=== PATIENT | female | born 1960 | race Caucasian/White ===

== ENCOUNTER 2017-06-18 05:36 | Inpatient (IN) | payer BC ==
[2017-06-18] MEDS ORDERED: Celecoxib 200 MG Cap PO ONE (06:00)
[2017-06-18] MEDS ORDERED: fentaNYL 12 MCG/HR Transdermal Patch TRDERM SCH (06:00)
[2017-06-18] MEDS ORDERED: Scopolamine 1.5 MG Transdermal Patch TRDERM SCH (06:00)
[2017-06-18] MEDS ORDERED: Acetaminophen 500 MG Tab PO ONE (06:00)
[2017-06-18] MEDS ORDERED: Dextrose 5%-Lactated Ringers 1,000 ML IV SCH (06:30)
[2017-06-18] MEDS ORDERED: Meropenem 500 MG SDV ONE (06:38)
[2017-06-18] MEDS ORDERED: Propofol 200 MG/20 ML SDV ONE ×2 (07:14→07:50)
[2017-06-18] MEDS ORDERED: fentaNYL 250 MCG/5 ML SDV ONE (07:14)
[2017-06-18] MEDS ORDERED: Neostigmine Methylsulfate 1 MG/ML 5 ML Syringe ONE (07:14)
[2017-06-18] MEDS ORDERED: Rocuronium 50 MG/5 ML Vial ONE (07:14)
[2017-06-18] MEDS ORDERED: Ondansetron 4 MG/2 ML SDV ONE (07:14)
[2017-06-18] MEDS ORDERED: Glycopyrrolate 0.2 MG/ML 5 ML MDV ONE (07:14)
[2017-06-18] MEDS ORDERED: Succinylcholine 200 MG/10 ML MDV ONE (07:14)
[2017-06-18] MEDS ORDERED: Dexamethasone 4 MG/ML SDV ONE (07:14)
[2017-06-18] MEDS ORDERED: HYDROmorphone/Normal Saline 15 MG/30 ML PCA IV PRN (07:24)
[2017-06-18] MEDS ORDERED: Naloxone 0.4 MG/ML SDV IVPUSH PRN (07:24)
[2017-06-18] MEDS ORDERED: Naloxone 0.4 MG/ML SDV IV PRN (07:29)
[2017-06-18] MEDS ORDERED: cefOXitin 2 GM in Sodium Chloride 0.9% 50 ML IV ONE (07:45)
[2017-06-18] MEDS ORDERED: Lactated Ringers 1,000 ML ONE ×2 (08:03→08:30)
[2017-06-18] MEDS ORDERED: Linezolid 200 MG/100 ML Bag IRR ONE (09:12)
[2017-06-18] MEDS ORDERED: Ondansetron 4 MG/2 ML SDV IVPUSH PRN (11:02)
[2017-06-18] MEDS ORDERED: ALPRAZolam 0.5 MG Tab PO PRN (11:03)
[2017-06-18] MEDS ORDERED: Glucose Gel 15 GM in 37.5 GM Tube PO PRN (11:15)
[2017-06-18] MEDS ORDERED: Glucagon,Human Recombinant 1 MG Vial IM PRN (11:15)
[2017-06-18] MEDS ORDERED: Insulin Aspart 100 Units/ML 3 ML Pen SUBCUT PRN ×2 (11:15→12:00)
[2017-06-18] MEDS ORDERED: 50% Dextrose in Water 50 ML Syringe IVPUSH PRN (11:15)
[2017-06-18] MEDS: FENTANYL PATCH CHECK TOP SCH ×2 (11:24→20:27)
[2017-06-18] MEDS: SCOPOLAMINE PATCH CHECK TOP SCH (11:29)
[2017-06-18] MEDS: Pantoprazole 40 MG Vial IV SCH (12:02)
[2017-06-18] MEDS: Dextrose 5%-Lactated Ringers 1,000 ML IV SCH ×2 (13:44→20:35)
[2017-06-18] MEDS: Levothyroxine 112 MCG Tab PO SCH (13:45)
[2017-06-18] MEDS: Venlafaxine 75 MG Cap.ER PO SCH (13:45)
[2017-06-18] MEDS: ceFAZolin 2 GM in Sodium Chloride 0.9% 50 ML IV SCH ×2 (13:52→21:00)
[2017-06-18] MEDS: Celecoxib 200 MG Cap PO SCH (17:28)
[2017-06-18] MEDS: Tolterodine 2 MG Tab PO SCH (20:45)
[2017-06-18] MEDS: metFORMIN 500 MG Tab.ER PO SCH (20:45)
[2017-06-18] MEDS: Doxepin 25 MG Cap PO SCH (20:46)
[2017-06-19] MEDS: Dextrose 5%-Lactated Ringers 1,000 ML IV SCH (02:59)
[2017-06-19] MEDS: ceFAZolin 2 GM in Sodium Chloride 0.9% 50 ML IV SCH (06:13)
[2017-06-19] MEDS: Celecoxib 200 MG Cap PO SCH ×2 (07:54→16:39)
[2017-06-19] MEDS: Levothyroxine 112 MCG Tab PO SCH (07:54)
[2017-06-19] MEDS: Venlafaxine 75 MG Cap.ER PO SCH (08:01)
[2017-06-19] MEDS: Tolterodine 2 MG Tab PO SCH ×2 (08:01→20:27)
[2017-06-19] MEDS: SCOPOLAMINE PATCH CHECK TOP SCH (08:10)
[2017-06-19] MEDS: FENTANYL PATCH CHECK TOP SCH ×2 (08:10→20:26)
[2017-06-19] MEDS: Enoxaparin 60 MG/0.6 ML Syringe SUBCUT SCH ×2 (10:16→20:27)
[2017-06-19] MEDS: Pantoprazole 40 MG Vial IV SCH (11:03)
--- NOTE | 2017-06-19 11:55 | PN ---
DATE OF SERVICE: 06/19/2017 SUBJECTIVE: Roula is postop day #1. Her pain has been controlled. She has been up ambulating, has been afebrile. Oral intake was 780. Urine output per Villavicencio catheter was 1745. REVIEW OF SYSTEMS: Remainder of review of systems negative for any pertinent positives and negatives. OBJECTIVE: GENERAL: Roula Quinones is a 57-year-old female. VITAL SIGNS: TPR 98.1, 63, 16. Blood pressure 116/69. HEENT: Negative. NECK: Supple. HEART: Regular rate and rhythm. LUNGS: Clear. ABDOMEN: Dressings dry and intact. Abdominal binder is on. EXTREMITIES: Without peripheral edema. ASSESSMENT: Laparotomy, repair of recurrent incisional hernia with mesh. Date of surgery, 06/18/2017. PLAN: 1. Decrease IV to 100 mL per hour. 2. Full liquid diet. 3. Discontinue Villavicencio catheter. 4. Lovenox 60 mg subcu b.i.d. 5. Good pulmonary toilet encouraged. 6. We will evaluate p.r.n. or in a.m. Sosa Bryson PA-C /[id number]
[2017-06-19] MEDS ORDERED: Dextrose 5%-Lactated Ringers 1,000 ML IV SCH (12:00)
[2017-06-19] MEDS: Acetaminophen/HYDROcodone 325-5 MG Tab PO PRN (18:02)
[2017-06-19] MEDS: Doxepin 25 MG Cap PO SCH (20:26)
[2017-06-19] MEDS: metFORMIN 500 MG Tab.ER PO SCH (20:27)
[2017-06-20] MEDS: Celecoxib 200 MG Cap PO SCH (07:10)
[2017-06-20] MEDS: Levothyroxine 112 MCG Tab PO SCH (07:10)
[2017-06-20 07:29] VITALS: BP 112/62
[2017-06-20] MEDS: SCOPOLAMINE PATCH CHECK TOP SCH (08:30)
[2017-06-20] MEDS: Venlafaxine 75 MG Cap.ER PO SCH (08:30)
[2017-06-20] MEDS: Enoxaparin 60 MG/0.6 ML Syringe SUBCUT SCH (08:30)
[2017-06-20] MEDS: Tolterodine 2 MG Tab PO SCH (08:30)
[2017-06-20] MEDS: FENTANYL PATCH CHECK TOP SCH (08:31)
[2017-06-20] MEDS ORDERED: Magnesium Hydroxide 400 MG/5 ML Susp 30 ML Cup PO PRN (09:35)
[2017-06-20] MEDS: Acetaminophen/HYDROcodone 325-5 MG Tab PO PRN (11:15)
--- NOTE | 2017-06-22 11:48 | DISCH ---
FINAL DIAGNOSES: 1. Recurrent incarcerated incisional hernia. 2. Extensive intraabdominal adhesions. 3. Sterile intraabdominal abscess. 4. Free-floating intraperitoneal mass (portion of old mesh detached from abdominal wall). SECONDARY DIAGNOSES: 1. Bariatric surgery status. 2. Type 2 diabetes mellitus. 3. History of urinary incontinence. 4. History of venous stasis and neurodermatitis. 5. Dysthymia. 6. History of hypertension. 7. History of hyperlipidemia. OPERATIVE PROCEDURE: Done on 06/18/2017, exploratory laparotomy with lysis of extensive adhesions with: 1. Repair of recurrent incarcerated incisional hernia with mesh. 2. Drainage and excision of sterile abscess cavity within the intraabdominal location. 3. Removal of free-floating intraperitoneal foreign body. 4. Placement of Vicryl mesh to limit recurrent adhesion formation. SUMMARY: This is a 57-year-old presenting with a large recurrent incisional hernia. The patient was admitted and underwent an open laparotomy with repair of the hernia with a mesh technique. She had an abscess cavity just inside the abdominal wall which turned out to be sterile with both Gram stain and cultures being negative. There is also some free-floating intraperitoneal mesh that apparently detached from the abdominal wall previously. The hernia was once again repaired with ventral mesh with this being a quite large mesh and Vicryl mesh placed under this to limit recurrent adhesion formation. Postoperatively, she has done well with no significant further problems. She is tolerating step-4 or regular diet. She will be sent home on her usual medications plus 12 mcg fentanyl patch which will be instructed to remove on Thursday, 06/24 and [place] 5/325 mg 1 to 2 tabs q.4 hours p.r.n. pain, #50 as well as to be sent home with 2 doses of milk of magnesia to take on a p.r.n. basis. Follow up will be with Dr. Rodriguez in [facility] on 07/01/2017.
--- NOTE | 2017-06-24 15:10 | OR ---
DATE OF PROCEDURE: 06/18/2017 PREOPERATIVE DIAGNOSIS: Recurrent incisional hernia. POSTOPERATIVE DIAGNOSES: 1. Recurrent incisional hernia. 2. Extensive intra-abdominal adhesions. 3. Probably sterile intra-abdominal abscess. 4. Free-floating intraperitoneal mass (portion of old mesh). OPERATIVE PROCEDURE: Exploratory laparotomy with lysis of extensive adhesions: 1. Repair of recurrent incarcerated incisional hernia with mesh (67980, [id number]). 2. Drainage and excision of probable sterile abscess cavity underlying abdominal wall (51518). 3. Removal of free-floating intraperitoneal mesh (47838). 4. Placement of Vicryl mesh to displace bowel from pelvic and abdominal batista to reduced subsequent adhesion formation (51046). ANESTHESIA: General. ENGINEERING MECHANIC: Sosa Bryson PA-C and ROLANDO Rowan. INDICATIONS FOR PROCEDURE: This is a 57-year-old presenting with increasingly symptomatic incisional hernia. After preoperative evaluation and discussion, she wished to proceed with repair of this. This would be done as an open approach, due to the extensiveness of previous surgeries, along with the anticipated extensive intra-abdominal adhesions. Plan will be to proceed with repair of the hernia most likely with mesh technique. She is aware of the possibility of complications such as bleeding, infection, injury to underlying viscera, possibility of the hernia recurring, the mesh becoming infected, as well as a remote possibility of cardiopulmonary, septic, or hemorrhagic complications leading to were all discussed, and the patient wishes to proceed. DETAILS OF PROCEDURE: The patient was taken to the operating room and placed in a supine position. After general endotracheal anesthesia was induced, a Villavicencio catheter was inserted, and the abdomen was prepped and draped. A midline incision was made centered around the hernia, located more or less in the mid abdomen. This was carried down through the skin and subcutaneous tissue, and the hernia sac was then encountered. This was dissected down to the level of fascia circumferentially. At that point, the hernia sac was opened. There was some incarcerated omentum as well as small bowel within it. These were dissected free and returned back into the peritoneal cavity. As one dissected adhesions away from the abdominal wall in preparation for the placement of the mesh, an abscess cavity was encountered. This appeared to be most likely sterile, and Gram stain was obtained, which showed no organisms. This appeared to be some old broken down necrotic fatty tissue that had been liquefied into a sterile abscess. This was drained and then that area excised as well. One additional finding was that of a free-floating portion of intraperitoneal mesh, which was adherent to some omentum. This was excised as well. At this point, the decision was made to proceed with repair of the hernia with mesh. A Ventralight ST mesh with an oval shape with dimensions of 8.7 x 10.7 inches was made, and roughly 5 cm along its circumference, 2-0 Vicryl sutures were placed on the polypropylene side of the mesh, and stab wounds were placed in the abdominal wall where the mesh would be pulled up, thus fixing it well away from the fascial defect. Once these were in place, the mesh was soaked in antibiotic-containing saline solution and the upper half of the sutures were then placed. The mesh was then pulled in, and then, underneath this, the 12-inch segment of Vicryl mesh was placed from the point underneath the bladder, along the pelvic sidewalls, and up underneath the abdominal wall, including the area of mesh coverage, thus displacing the viscera away from the mesh. At that point, no further problems were noted, and the midline fascia was approximated with #2 Vicryl stitch. This was fairly tight but did come together nicely, and following this then, the subcutaneous tissue was approximated with some 3-0 Vicryl stitch and subdermal stitch of 4-0 Vicryl and skin with hallye. Dressing was applied. The patient was taken to the recovery room in satisfactory condition. There were no evident complications. Physician assistant press operator, Sosa Bryson, played an essential role in assisting in this case, helping to position the patient, retract structures as needed, as well as suturing and cutting sutures when indicated. Her presence improved patient's safety and decreased operative time. Aj Rodriguez MD /[id number]
== END 2017-06-20 11:29 | disposition home or self-care (01) | DRG 227 ==
LOC: JP.SDS 05:36 → JP.MS 05:36 → EDSTATUS 07:30 → JP.2SS 09:50
PROVIDERS: ADMIT Surgery; ATTEND Surgery
PROC: 0DNW0ZZ Release Peritoneum, Open Approach (ICD-10-PCS; principal; 2017-06-18)
PROC: 0WPF0JZ Removal of Synthetic Substitute from Abdominal Wall, Open Approach (ICD-10-PCS; principal; 2017-06-18)
PROC: 0W9G0ZX Drainage of Peritoneal Cavity, Open Approach, Diagnostic (ICD-10-PCS; principal; 2017-06-18)
PROC: 3E0M05Z Introduction of Adhesion Barrier into Peritoneal Cavity, Open Approach (ICD-10-PCS; principal; 2017-06-18)
PROC: 0WUF0JZ Supplement Abdominal Wall with Synthetic Substitute, Open Approach (ICD-10-PCS; principal; 2017-06-18)
DX: K43.0 Incisional hernia with obstruction, without gangrene (principal); M19.90 Unspecified osteoarthritis, unspecified site; K91.2 Postsurgical malabsorption, not elsewhere classified; I10 Essential (primary) hypertension; E11.9 Type 2 diabetes mellitus without complications; Z79.84 Long term (current) use of oral hypoglycemic drugs; G89.29 Other chronic pain; E03.9 Hypothyroidism, unspecified; L40.9 Psoriasis, unspecified; F41.9 Anxiety disorder, unspecified; F34.1 Dysthymic disorder; E78.2 Mixed hyperlipidemia; Z98.84 Bariatric surgery status; E53.9 Vitamin B deficiency, unspecified; K66.0 Peritoneal adhesions (postprocedural) (postinfection); K65.1 Peritoneal abscess
CPT/HCPCS: 36415; 80048; 82962; 83735; 84100; 85027; 87070; 87075; 87205; 88300; 88304; 94762; A9270-GY; C1781; C9113; J0330; J0690; J0694; J1100; J1170; J1650; J2020; J2185; J2405; J2704; J2710; J3010; J7042; J7050; J7120